=== PATIENT | female | born 1975 | race Caucasian/White ===

== ENCOUNTER 2018-03-24 12:59 | Emergency (ER) | payer BC ==
[~2018-03-24] VITALS: Ht 165.1 cm; Wt 69.5 kg
[2018-03-24 15:06] LABS: BASOPHIL (%) 1.1 % (0-1); BASOPHIL COUNT 0.2 K/uL (0-0.1); EOSINOPHIL (%) 1.2 % (0-5); EOSINOPHIL COUNT 0.2 K/uL (0-0.3); HEMATOCRIT 43.2 % (36.0-46.0); HEMOGLOBIN 14.5 G/DL (11.9-15.5); IMMATURE GRANULOCYTE (%) 0.8 % (0.0-0.7); LYMPHOCYTE (%) 27.6 % (15-42); LYMPHOCYTE COUNT 3.7 K/uL (1.0-2.8); MCH 30.1 PG (29.0-34.0); MCHC 33.6 G/DL (30.0-36.0); MCV 89.8 FL (83-99); MONOCYTE (%) 3.9 % (3-12); MONOCYTE COUNT 0.5 K/uL (0-0.8); NEUTROPHIL (%) 65.4 % (45-76); NEUTROPHIL COUNT 8.7 K/uL (1.8-6.4); PLATELET COUNT 305 K/uL (156-360); RBC DIS.WIDTH-CV 14.1 % (11.8-14.6); RBC DIS.WIDTH-SD 46.4 % (39-53); RED BLOOD COUNT 4.81 M/uL (3.80-5.20); WHITE BLOOD COUNT 13.3 K/uL (4.1-10.2)
[2018-03-24 15:16] LABS: ALBUMIN 4.2 g/dL (3.2-4.8); CHLORIDE 109 mEq/L (99-109); POTASSIUM 4.1 mEq/L (3.7-5.4); SODIUM 139 mEq/L (136-147)
[2018-03-24 15:18] LABS: GLUCOSE 85 mg/dL (70-99); TOTAL PROTEIN 7.5 g/dL (6.4-8.3)
[2018-03-24 15:20] LABS: TOTAL BILIRUBIN 0.4 mg/dL (0.0-1.0)
[2018-03-24 15:22] LABS: ALKALINE PHOSPHATASE 129 IU/L (3-129); CREATININE 0.8 mg/dL (0.6-1.3); GFR ESTIMATE (CALCULATED) > 59 mL/min/
[2018-03-24 15:23] LABS: AST (GOT) 22 IU/L (2-34); UREA NITROGEN (BUN) 7 mg/dL (9-23)
[2018-03-24 15:25] LABS: ALT (GPT) 17 IU/L (3-49)
[2018-03-24 15:29] LABS: TROP-I INTERPRETATION NEGATIVE; TROPONIN-I < 0.01 ng/mL (0.0-0.30)
[2018-03-24 16:30] VITALS: BP 134/58
== END 2018-03-24 14:20 | disposition home or self-care (01) ==
LOC: EME 12:59
PROVIDERS: Emergency Medicine
DX: G89.29 Other chronic pain (principal); R07.9 Chest pain, unspecified; R51 Headache; M54.2 Cervicalgia; F41.9 Anxiety disorder, unspecified; I25.2 Old myocardial infarction
CPT/HCPCS: 71046; 80053; 84484; 85025; 93005; 99281; 99284; J1885